=== PATIENT | female | born 1975 ===

== ENCOUNTER 2018-07-30 21:33 | Emergency (ER) | payer MEDICAID ==
[~2018-07-30] VITALS: Ht 170.2 cm; Wt 134.9 kg
[~2018-07-30 21:33] MED LIST: ALBU2.5V NEB; ALBUTEROL INHALER INH; CETI10TA18 PO; CYCL-259 PO; DEXT15DR16 EACHEYE; DIPH25CA61 PO; EPIN0.3A3 IM; EUCERIN; FLUT9.9S NAS; KETO5DRO70 OP; MOME110A2 INH; NAPR-685 PO; ONDA4TAB13 SL; OXYC5CAP2 PO; PNV91TAB3 PO; [UNRECOGNIZED DRUG - CODE] TD
--- NOTE | 2018-07-30 22:13 | NUR ---
TO ROOM FROM LOBBY. NAD
[2018-07-30] MEDS ORDERED: LIDOCAINE PATCHES (22:30)
[2018-07-30] MEDS ORDERED: INSU100C SQ-INSULIN (22:31)
[2018-07-30] MEDS ORDERED: OLOP5DRO13 EACHEYE (22:32)
[2018-07-30] MEDS ORDERED: TRAMADOL (22:33)
--- NOTE | 2018-07-30 22:42 | NUR ---
ASSUMED CARE OF PATIENT. PATIENT C/O LEFT SIDED CHEST PAIN X1 WEEK. SHE ALSO REPORTS SHE HAS AN ELARGED HEART. 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 NSR NOTED. CALL LIGHT IN PLACE. NO ACUTE DISTRESS NOTED. WILL CONTINUE TO MONITOR.
[2018-07-30] MEDS ORDERED: ASPIRIN 81 MG TABLET CHEW ONE (23:23)
[2018-07-30] MEDS: ASPIRIN 81 MG TABLET CHEW PO ONE ×2 (23:25→23:26)
--- NOTE | 2018-07-30 23:27 | NUR ---
PT SEEN BY DR HART
[2018-07-31 00:06] LABS: BASOPHILS # (AUTO) 0.07 x10^3/uL (0-0.1); BASOPHILS % (AUTO) 1 % (0-1); EOSINOPHILS # (AUTO) 0.27 x10^3/uL (0-0.4); EOSINOPHILS % (AUTO) 2 % (1-7); LYMPHOCYTES # (AUTO) 3.36 x10^3/uL (1-3.4); LYMPHOCYTES % (AUTO) 29 % (22-44); MD NO; MEAN CORPUSCULAR HEMOGLOBIN 31.2 pg (27.0-34.8); MEAN CORPUSCULAR HGB CONC 34.2 g/dL (32.4-35.8); MEAN CORPUSCULAR VOLUME 91.3 fL (80-100); MEAN PLATELET VOLUME 7.6 fL (7.4-10.4); MONOCYTES # (AUTO) 0.76 x10^3/uL (0.2-0.8); MONOCYTES % (AUTO) 7 % (2-9); NEUTROPHILS # (AUTO) 7.04 x10^3/uL (1.8-6.8); NEUTROPHILS % (AUTO) 61 % (42-75); PLATELET COUNT 246 x10^3/uL (130-400); RED BLOOD COUNT 4.41 x10^6/uL (3.82-5.3); RED CELL DISTRIBUTION WIDTH 14.3 % (9.6-15.2)
[2018-07-31 00:17] LABS: ALANINE AMINOTRANSFERASE 50 U/L (12-78); ALBUMIN 3.1 g/dL (3.4-5.0); ANION GAP 7 mmol/L (5-15); CALCIUM 8.4 mg/dL (8.5-10.1); CHLORIDE 108 mmol/L (98-107); CREATININE 0.82 mg/dL (0.55-1.02)
[2018-07-31 00:21] LABS: ALKALINE PHOSPHATASE 144 U/L (45-117); BILIRUBIN,TOTAL 0.1 mg/dL (0.2-1.0); TOTAL PROTEIN 6.8 g/dL (6.4-8.2); TROPONIN I < 0.015 ng/mL (0.000-0.045)
--- NOTE | 2018-07-31 00:25 | NUR ---
PT RESTING IN ROOM. REG. RESP. NO ACUTE DISTRESS NOTED. WILL CONTINUE TO MONITOR.
--- NOTE | 2018-07-31 01:27 | NUR ---
DR HART UPDATING PATIENT
--- NOTE | 2018-07-31 01:51 | NUR ---
PT TO BE DISCHRAGED.
[2018-07-31 02:12] VITALS: BP 125/78
== END 2018-07-31 02:23 | disposition home or self-care (01) ==
LOC: ED 23:59
DX: R07.89 Other chest pain (principal); F17.210 Nicotine dependence, cigarettes, uncomplicated
CPT/HCPCS: 36415; 71046; 80053; 84484; 85025; 93005; 99284